=== PATIENT | female | born 1940 | race Caucasian/White ===

== ENCOUNTER 2019-08-05 12:53 | Inpatient (IN) | payer MEDICARE, BC ==
[2019-08-05] MEDS ORDERED: Sodium Chloride 0.9% 1,000 ML IV ONE (13:07)
[2019-08-05] MEDS ORDERED: diphenhydrAMINE 50 MG/ML SDV IVPUSH ONE (13:07)
[2019-08-05] MEDS ORDERED: Famotidine/Normal Saline 20 MG in Premix Bag 1 BAG IV ONE (13:09)
[2019-08-05] MEDS ORDERED: methylPREDNISolone Sodium Succinate 125 MG/2 ML SDV IVPUSH SCH (13:15)
--- NOTE | 2019-08-05 13:17 | EDM.PDOC ---
ED HPI GENERAL MEDICAL PROBLEM - General Stated Complaint: HIVES Time Seen by Provider: 08/05/19 13:11 Source of Information: Reports: Patient, Family History Limitations: Reports: No Limitations - History of Present Illness INITIAL COMMENTS - FREE TEXT/NARRATIVE: c/o fall pt lives alone "in a big house with 4 bedrooms," drives car, goes up and down stairs at home, does not use walker or cane, has not fallen in several years gets up frequently at night, got up to go to the bathroom and slid out of her "high bed" to the floor, unable to get up, lay on floor ~12 hour, pt's granddaughter who is an [employer] found her on the floor dtr at bedside, dtr reports that pt seemed mildly confused when she spoke with her at 9p last night, dtr thinks she is more confused today pt denies pain, denies injury, says she is in good health, does not take any meds was give dexamethasone and Claritin ~2w ago by PCP Dr Bui for hives, still has hives, does with dexamethasone, may have take 3 Claritin last night, still with large welts today pt thinks it is the [employer] coffee because "I drink a lot", did not drink coffee for 2 days last week but pt does not remember if the rash was better then various foods have been eliminated without benefiting pt no pain, no f/c/d, no n/v pt had a "severe" case of West Nile 8y ago, will have trouble walking and thinking when she is physically exhausted or at end of day - Related Data Allergies Allergy/AdvReac Type Severity Reaction Status Date / Time No Known Allergies Allergy Verified 08/05/19 13:29 Home Meds: Home Meds . [No Known Home Meds] 1 ea .XX ASDIRECTED 08/05/19 [History] Past Medical History Neurological History: Reports: Other (See Below) Other Neuro History: West Nile Encephalitis ED ROS GENERAL - Review of Systems Review Of Systems: See Below Constitutional: Reports: Weakness. Denies: Fever HEENT: Reports: No Symptoms Respiratory: Reports: No Symptoms Cardiovascular: Reports: No Symptoms Endocrine: Reports: No Symptoms GI/Abdominal: Reports: No Symptoms : Reports: No Symptoms Musculoskeletal: Reports: No Symptoms Skin: Reports: Urticaria, Other (hives) Neurological: Reports: No Symptoms Psychiatric: Reports: Confusion Hematologic/Lymphatic: Reports: No Symptoms Immunologic: Reports: No Symptoms ED EXAM, GENERAL - Physical Exam Exam: See Below Exam Limited By: No Limitations General Appearance: Alert, WD/WN, No Apparent Distress, Other (alert, conversant) Eye Exam: Bilateral Eye: EOMI, PERRL Ears: Normal External Exam, Normal Canal, Hearing Grossly Normal Nose: Normal Inspection, Normal Mucosa, No Blood Throat/Mouth: Normal Inspection, Normal Lips, Normal Teeth, Normal Gums, Normal Oropharynx, Normal Voice, No Airway Compromise Head: Atraumatic, Normocephalic Neck: Normal Inspection, Supple, Non-Tender, Full Range of Motion. No: Lymphadenopathy (R), Lymphadenopathy (L) Respiratory/Chest: No Respiratory Distress, Lungs Clear, Normal Breath Sounds, No Accessory Muscle Use, Chest Non-Tender Cardiovascular: Regular Rate, Rhythm, No Edema, No Gallop, No JVD, No Murmur, No Rub GI/Abdominal: Soft, Non-Tender, No Distention Extremities: Normal Inspection, Normal Range of Motion, Non-Tender, No Pedal Edema Neurological: Alert, Oriented, CN II-XII Intact, Normal Cognition, No Motor/Sensory Deficits Psychiatric: Normal Affect, Normal Mood Skin Exam: Other (large flat red urticarial welts of 20-30 cm diameter and only a few mm's elevation across abd and chest, extremities spared, face spared) Lymphatic: No Adenopathy Course - Orders/Labs/Meds Orders: Active Orders 24 hr Category Date Time Status Admission Status [Patient Status] [ADT] Routine ADT 08/05/19 15:39 Active EKG Documentation Completion [RC] ASDIRECTED Care 08/05/19 13:10 Active Chest 1V Frontal [CR] Stat Exams 08/05/19 13:16 Taken Head wo Cont [CT] Stat Exams 08/05/19 13:16 Taken CORONAVIRUS COVID-19 PCR PHL Stat Lab 08/05/19 14:12 Ordered CULTURE BLOOD [BC] Urgent Lab 08/05/19 14:22 Received CULTURE BLOOD [BC] Urgent Lab 08/05/19 14:32 Received CULTURE URINE [RM] Stat Lab 08/05/19 14:59 Received cefTRIAXone [Rocephin] Med 08/05/19 15:15 Active 1 gm IVPUSH Q24H methylPREDNISolone Sod Succ [Solu-MEDROL] Med 08/05/19 13:15 Active 125 mg IVPUSH DAILY Blood Culture x2 Reflex Set [OM.PC] Urgent Oth 08/05/19 14:09 Ordered EKG 12 Lead [EK] Routine Ther 08/05/19 13:09 Ordered Medication Orders Ceftriaxone Sodium (Rocephin) 1 gm IVPUSH Q24H EVER Methylprednisolone Sodium Succinate (Solu-Medrol) 125 mg IVPUSH DAILY EVER Last Admin: 08/05/19 13:36 Dose: 125 mg Documented by: MARANDA Labs: Laboratory Tests 08/05/19 08/05/19 08/05/19 Range/Units 13:16 13:16 13:16 WBC 12.4 H (4.5-12.0) X10-3/uL RBC 4.51 (3.23-5.20) x10(6)uL Hgb 13.4 (11.5-15.5) g/dL Hct 40.9 (30.0-51.3) % MCV 90.7 (80-96) fL MCH 29.8 (27.7-33.6) pg MCHC 32.8 (32.2-35.4) g/dL RDW 13.5 (11.5-15.5) % Plt Count 286 (125-369) X10(3)uL MPV 7.0 L (7.4-10.4) fL Add Manual Diff Yes Neutrophils % (Manual) 80 (46-82) % Band Neutrophils % 7 H (0-6) % Lymphocytes % (Manual) 10 L (13-37) % Monocytes % (Manual) 3 L (4-12) % Sodium 134 L (135-145) mmol/L Potassium 3.5 (3.5-5.3) mmol/L Chloride 99 L (100-110) mmol/L Carbon Dioxide 26 (21-32) mmol/L BUN 20 H (7-18) mg/dL Creatinine 1.0 (0.55-1.02) mg/dL Est Cr Clr Drug Dosing TNP Estimated GFR (MDRD) 53 L (>60) BUN/Creatinine Ratio 20.0 (9-20) Glucose 177 H (80-116) mg/dL Lactic Acid (0.4-2.0) mmol/L Calcium 8.3 L (8.6-10.2) mg/dL Magnesium (1.8-2.5) mg/dL Total Bilirubin 2.2 H (0.1-1.3) mg/dL AST 29 H (5-25) IU/L ALT 34 (12-36) U/L Alkaline Phosphatase 63 (56-112) IU/L Creatine Kinase 435 H* (60-160) IU/L Troponin I 15.4 (4.0-60.3) pg/mL C-Reactive Protein 11.2 H* (0.5-0.9) mg/dL Total Protein 6.0 (6.0-8.0) g/dL Albumin 2.8 L (3.2-4.6) g/dL Globulin 3.2 g/dL Albumin/Globulin Ratio 0.9 TSH, Ultra Sensitive (0.36-3.74) IU/mL Urine Color (YELLOW) Urine Appearance (CLEAR) Urine pH (5.0-6.5) Ur Specific [place] (1.010-1.025) Urine Protein (NEGATIVE) mg/dL Urine Glucose (UA) (NORMAL) mg/dL Urine Ketones (NEGATIVE) mg/dL Urine Occult Blood (NEGATIVE) Urine Nitrite (NEGATIVE) Urine Bilirubin (NEGATIVE) Urine Urobilinogen (NEGATIVE) mg/dL Ur Leukocyte Esterase (NEGATIVE) Urine RBC (0-5) Urine WBC (0-5) Ur Squamous Epith Cells (NS,R,O) Urine Bacteria (NS) 08/05/19 08/05/19 08/05/19 Range/Units 13:16 13:16 14:22 WBC (4.5-12.0) X10-3/uL RBC (3.23-5.20) x10(6)uL Hgb (11.5-15.5) g/dL Hct (30.0-51.3) % MCV (80-96) fL MCH (27.7-33.6) pg MCHC (32.2-35.4) g/dL RDW (11.5-15.5) % Plt Count (125-369) X10(3)uL MPV (7.4-10.4) fL Add Manual Diff Neutrophils % (Manual) (46-82) % Band Neutrophils % (0-6) % Lymphocytes % (Manual) (13-37) % Monocytes % (Manual) (4-12) % Sodium (135-145) mmol/L Potassium (3.5-5.3) mmol/L Chloride (100-110) mmol/L Carbon Dioxide (21-32) mmol/L BUN (7-18) mg/dL Creatinine (0.55-1.02) mg/dL Est Cr Clr Drug Dosing Estimated GFR (MDRD) (>60) BUN/Creatinine Ratio (9-20) Glucose (80-116) mg/dL Lactic Acid 1.2 (0.4-2.0) mmol/L Calcium (8.6-10.2) mg/dL Magnesium 1.7 L (1.8-2.5) mg/dL Total Bilirubin (0.1-1.3) mg/dL AST (5-25) IU/L ALT (12-36) U/L Alkaline Phosphatase (56-112) IU/L Creatine Kinase (60-160) IU/L Troponin I (4.0-60.3) pg/mL C-Reactive Protein (0.5-0.9) mg/dL Total Protein (6.0-8.0) g/dL Albumin (3.2-4.6) g/dL Globulin g/dL Albumin/Globulin Ratio TSH, Ultra Sensitive 1.14 (0.36-3.74) IU/mL Urine Color (YELLOW) Urine Appearance (CLEAR) Urine pH (5.0-6.5) Ur Specific [place] (1.010-1.025) Urine Protein (NEGATIVE) mg/dL Urine Glucose (UA) (NORMAL) mg/dL Urine Ketones (NEGATIVE) mg/dL Urine Occult Blood (NEGATIVE) Urine Nitrite (NEGATIVE) Urine Bilirubin (NEGATIVE) Urine Urobilinogen (NEGATIVE) mg/dL Ur Leukocyte Esterase (NEGATIVE) Urine RBC (0-5) Urine WBC (0-5) Ur Squamous Epith Cells (NS,R,O) Urine Bacteria (NS) 08/05/19 Range/Units 14:59 WBC (4.5-12.0) X10-3/uL RBC (3.23-5.20) x10(6)uL Hgb (11.5-15.5) g/dL Hct (30.0-51.3) % MCV (80-96) fL MCH (27.7-33.6) pg MCHC (32.2-35.4) g/dL RDW (11.5-15.5) % Plt Count (125-369) X10(3)uL MPV (7.4-10.4) fL Add Manual Diff Neutrophils % (Manual) (46-82) % Band Neutrophils % (0-6) % Lymphocytes % (Manual) (13-37) % Monocytes % (Manual) (4-12) % Sodium (135-145) mmol/L Potassium (3.5-5.3) mmol/L Chloride (100-110) mmol/L Carbon Dioxide (21-32) mmol/L BUN (7-18) mg/dL Creatinine (0.55-1.02) mg/dL Est Cr Clr Drug Dosing Estimated GFR (MDRD) (>60) BUN/Creatinine Ratio (9-20) Glucose (80-116) mg/dL Lactic Acid (0.4-2.0) mmol/L Calcium (8.6-10.2) mg/dL Magnesium (1.8-2.5) mg/dL Total Bilirubin (0.1-1.3) mg/dL AST (5-25) IU/L ALT (12-36) U/L Alkaline Phosphatase (56-112) IU/L Creatine Kinase (60-160) IU/L Troponin I (4.0-60.3) pg/mL C-Reactive Protein (0.5-0.9) mg/dL Total Protein (6.0-8.0) g/dL Albumin (3.2-4.6) g/dL Globulin g/dL Albumin/Globulin Ratio TSH, Ultra Sensitive (0.36-3.74) IU/mL Urine Color Yellow (YELLOW) Urine Appearance Slightly cloudy (CLEAR) Urine pH 6.5 (5.0-6.5) Ur Specific [place] 1.010 (1.010-1.025) Urine Protein Negative (NEGATIVE) mg/dL Urine Glucose (UA) Normal (NORMAL) mg/dL Urine Ketones Negative (NEGATIVE) mg/dL Urine Occult Blood Negative (NEGATIVE) Urine Nitrite Negative (NEGATIVE) Urine Bilirubin Negative (NEGATIVE) Urine Urobilinogen Normal (NEGATIVE) mg/dL Ur Leukocyte Esterase Moderate H (NEGATIVE) Urine RBC 0-5 (0-5) Urine WBC 10-20 H (0-5) Ur Squamous Epith Cells Few H (NS,R,O) Urine Bacteria Many H (NS) Meds: Medications Generic Name Dose Route Start Last Admin Trade Name Freq PRN Reason Stop Dose Admin Ceftriaxone Sodium 1 gm 08/05/19 15:15 Rocephin IVPUSH Q24H EVER Methylprednisolone Sodium Succinate 125 mg 08/05/19 13:15 08/05/19 13:36 Solu-Medrol IVPUSH 125 mg DAILY EVER Administration Discontinued Medications Generic Name Dose Route Start Last Admin Trade Name Freq PRN Reason Stop Dose Admin Diphenhydramine HCl 25 mg 08/05/19 13:07 08/05/19 13:40 Benadryl IVPUSH 08/05/19 13:08 25 mg ONETIME ONE Administration Sodium Chloride 1,000 mls @ 999 mls/hr 08/05/19 13:07 08/05/19 13:31 Normal Saline IV 08/05/19 14:07 999 mls/hr .BOLUS ONE Administration Famotidine 20 mg/ Premix 50 mls @ 200 mls/hr 08/05/19 13:09 08/05/19 13:37 IV 08/05/19 13:10 200 mls/hr ONETIME ONE Administration - Re-Assessments/Exams Free Text/Narrative Re-Assessment/Exam: 08/05/19 15:56 u/a with UTI per Dr Obrien, CxR with no acute findings, head CT shows central atrophy without acute findings pt is full code d/w Dr Chen who accepted pt in admission, pt and dtr in agreement Departure - Departure Time of Disposition: 15:56 Disposition: Against Medical Advice 07 Condition: Good Clinical Impression: Fall from bed, initial encounter, Unable to stand up, Confusion, Weakness, Hives, Moderate dehydration, Acute prerenal azotemia, Elevated C-reactive protein (CRP), Hypoalbuminemia, Rhabdomyolysis, Hyperglycemia, Leukocytosis, Increased bands, Abnormal EKG, Urinary tract infection, Adrenal suppression, Hypomagnesemia - Discharge Information *PRESCRIPTION DRUG MONITORING PROGRAM REVIEWED*: Not Applicable *COPY OF PRESCRIPTION DRUG MONITORING REPORT IN PATIENT RENZO: Not Applicable Referrals: Rashaad Bui MD [Primary Care Provider] - - My Orders Last 24 Hours: My Active Orders 08/05/19 13:09 EKG 12 Lead [EK] Routine 08/05/19 13:10 EKG Documentation Completion [RC] ASDIRECTED 08/05/19 13:15 methylPREDNISolone Sod Succ [Solu-MEDROL] 125 mg IVPUSH DAILY 08/05/19 13:16 Chest 1V Frontal [CR] Stat Head wo Cont [CT] Stat 08/05/19 14:09 Blood Culture x2 Reflex Set [OM.PC] Urgent 08/05/19 14:12 CORONAVIRUS COVID-19 PCR PHL Stat 08/05/19 14:22 CULTURE BLOOD [BC] Urgent 08/05/19 14:32 CULTURE BLOOD [BC] Urgent 08/05/19 14:59 CULTURE URINE [RM] Stat 08/05/19 15:15 cefTRIAXone [Rocephin] 1 gm IVPUSH Q24H 08/05/19 15:39 Admission Status [Patient Status] [ADT] Routine - Assessment/Plan Last 24 Hours: My Active Orders 08/05/19 13:09 EKG 12 Lead [EK] Routine 08/05/19 13:10 EKG Documentation Completion [RC] ASDIRECTED 08/05/19 13:15 methylPREDNISolone Sod Succ [Solu-MEDROL] 125 mg IVPUSH DAILY 08/05/19 13:16 Chest 1V Frontal [CR] Stat Head wo Cont [CT] Stat 08/05/19 14:09 Blood Culture x2 Reflex Set [OM.PC] Urgent 08/05/19 14:12 CORONAVIRUS COVID-19 PCR PHL Stat 08/05/19 14:22 CULTURE BLOOD [BC] Urgent 08/05/19 14:32 CULTURE BLOOD [BC] Urgent 08/05/19 14:59 CULTURE URINE [RM] Stat 08/05/19 15:15 cefTRIAXone [Rocephin] 1 gm IVPUSH Q24H 08/05/19 15:39 Admission Status [Patient Status] [ADT] Routine
[2019-08-05] MEDS ORDERED: cefTRIAXone 1 GM Vial IVPUSH SCH (15:15)
--- NOTE | 2019-08-05 15:58 | CT ---
INDICATION: Slid out of bed 12 hours ago. Increased confusion. History of West Nile encephalitis [address] HEAD WITHOUT CONTRAST: Spiral 3.75 mm axial sections were obtained through the brain without contrast with sagittal and coronal reconstructions 08/05/19 - no comparisons. Total exam DLP was 1348.07 mGy-cm. The paranasal sinuses appear to be fairly well aerated with no evidence of sinusitis identified. The mastoid air cells were also well aerated. Moderate degenerative changes are noted at the odontoatlantian joint. The orbits appear unremarkable. No definite cranial abnormality was identified. No shift of midline structures was identified. There is some minimal calcification in the internal carotid arteries. The ventricles are prominent, compatible with central atrophy. The sylvian fissures especially the left, are prominent, compatible with temporal atrophy. Otherwise, relatively minimal cortical atrophy for age is suggested. No areas of hemorrhage or hematoma were demonstrated. There do appear to be some minimal white matter changes, compatible with microvascular disease. IMPRESSION: 1. No acute intracranial abnormality. 2. Cerebrovascular disease with mostly central atrophy, but also temporal atrophy. 3. Minimal to mild microvascular disease-type changes in the white matter. Report was called to Dr. Ahuja at 1417 hours. [facility]
[2019-08-05] MEDS ORDERED: Acetaminophen 325 MG Tab PO PRN (16:09)
[2019-08-05] MEDS ORDERED: Ondansetron 4 MG/2 ML SDV IVPUSH PRN (16:09)
[2019-08-05] MEDS ORDERED: cefTRIAXone 1 GM in Sodium Chloride 0.9% 50 ML IV SCH (16:15)
[2019-08-05] MEDS ORDERED: Magnesium Sulfate/Water 50 ML IV ONE (16:30)
--- NOTE | 2019-08-05 16:30 | CR ---
INDICATION: Increased confusion. CHEST, ONE VIEW: An AP upright view of the chest was obtained 08/05/19. Comparison chest x-ray was obtained from the clinic dated 10/03/11. The heart did not appear enlarged. Findings suggesting COPD are noted. A mild dextroconcave scoliosis of the mid thoracic spine is noted with moderate hypertrophic degenerative changes in the mid to lower thoracic spine with hypertrophic lipping. No consolidating pneumonia or effusion was seen. Little interval change is suggested compared with the previous study of 10/03/11. IMPRESSION: No acute process. Report was called to Dr. Ahuja at 1518 hours. [facility]
[2019-08-05] MEDS: D5 1/2 NS w/ 20 mEq/L KCl 1,000 ML IV SCH (17:14)
[2019-08-05] MEDS: Enoxaparin 40 MG/0.4 ML Syringe SUBCUT SCH (17:15)
[2019-08-05] MEDS: methylPREDNISolone Sodium Succinate 125 MG/2 ML SDV IVPUSH SCH (21:38)
[2019-08-05] MEDS ORDERED: Sodium Chloride 0.9% 10 ML Syringe FLUSH PRN (21:39)
[2019-08-05] MEDS ORDERED: Insulin Lispro 100 Unit/ML 3 ML KwikPen SUBCUT ONE ×2 (21:59→22:15)
[2019-08-06] MEDS: methylPREDNISolone Sodium Succinate 125 MG/2 ML SDV IVPUSH SCH (06:11)
[2019-08-06] MEDS ORDERED: Famotidine 20 MG Tab PO SCH (09:00)
[2019-08-06 09:40] LABS: HEMOGLOBIN A1C 7.4 % (<5.7)
[2019-08-06] MEDS: Loratadine 10 MG Tab PO SCH (09:40)
[2019-08-06] MEDS: Ciprofloxacin 250 MG Tab PO SCH ×2 (10:29→20:08)
--- NOTE | 2019-08-06 11:56 | PN ---
DATE SEEN: 08/06/2019 SUBJECTIVE: Viki Gonzalez is a 79-year-old female, presented with a peculiar event. She slid or fell from her bed; unable ambulate or be independent; was there for a period of time, maybe 6 to 12 hours, uncertain; and did have a moment of incontinence. Memory issues appear to be a clouding factor. Walking issues appear to be a clouding factor. Gait appears to be a little bit parkinsonian in nature. Laboratories of significance: Had a mildly elevated C-reactive protein, normal is 0.5, her was 11; CPK was elevated at 435, normal 6 to 160. We will check both of those particular tests today. OBJECTIVE: GENERAL: She otherwise was wellor expressible. Speech was fluent. Conduct was appropriate. Little bit of [place] conversation. NECK: Benign. Thyroid small. CHEST: Clear in all lung hwang. HEART: No ectopy or murmur. ABDOMEN: Benign. NEUROLOGIC: Strength appeared to be symmetric.SKIN; persistant urticarial lesions chest abd and back ASSESSMENT: Recent fall with peculiar consequences. PLAN: PT referral, walker therapy, recheck her CPK and CRP, and results to follow accordingly. /[id number] VIDAL/MIKA WONG
[2019-08-06] MEDS: Enoxaparin 40 MG/0.4 ML Syringe SUBCUT SCH (17:36)
[2019-08-06] MEDS: D5 1/2 NS w/ 20 mEq/L KCl 1,000 ML IV SCH (18:58)
[2019-08-07] MEDS: Ciprofloxacin 250 MG Tab PO SCH (08:22)
[2019-08-07] MEDS: Loratadine 10 MG Tab PO SCH (08:22)
--- NOTE | 2019-08-07 11:06 | DISCH ---
DISCHARGE DATE: 08/07/2019 DISCHARGE DIAGNOSES: 1. Fall with prolonged but resolved generalized weakness. 2. Hyperglycemia, likely new diagnosis of diabetes mellitus. 3. Markedly elevated inflammatory markers including CPK of 435 and 203, C- reactive protein of 11.2 and 17.2. Mildly elevated bilirubin of 2.2. HISTORY: Viki Gonzalez is a 79-year-old female, admitted through [facility]. Circumstances not completely clear of the events that occurred on the morning. Lives alone in a big house, 4 bedrooms, independent by observation. Often up at night to the bathroom, in the care of her 8-pound dog. Sometime in the customer account representative hours, uncertain, and on discussionfour june was up toshe was 12 hourson the floor in bedroom, may have been sitting on the floor by her bed, unable to get up onto the high-top bed. Viki states it was probably customer account representative hours. She thought sun was coming up when she fell. Granddaughter came and attended, took 2 of them to get her down to the main floor, and was seen in the emergency room. Please see present history and physical. DIAGNOSTIC STUDIES: CT head within normal limits. Chest x-ray unremarkable. LABORATORY STUDIES: Of significance: White count 12,400, hemoglobin 13.4, GFR 53, and glucose 177. Hemoglobin A1c 7.4. Mildly elevated bilirubin at 2.2, magnesium 1.7. The patient was admitted for intervention and care. She was given IV fluids, hydration, and observed clinically. It should be noted, initial CPK was 435, fell to 203; CRP 11.2, rechecked on the at 17.7. She was informed of her elevated blood sugar and need for consideration for diabetes management and some dietary precautions. Spoke of the elevated CPK x2 and its impact in terms of muscle inflammation. May have been fall related. No x-rays were taken of bony structures. PHYSICAL EXAMINATION AT DISCHARGE: VITAL SIGNS: 36.6, 153/53, 18, and 98. GENERAL: Appears comfortable. Speech is fluent. NECK: Benign. Thyroid small. CHEST: On auscultation, clear all lung hwang. HEART: No ectopy or murmur. ABDOMEN: Benign. Had been ambulated 6 times yesterday and this morning without conflict. Fall, see diagnosis above. PLAN: We will have an urgent followup with Dr. Bui in middle of this week. We will follow up on blood sugar; A1c; elevated inflammatory markers, i.e., CRP; and elevated bilirubin along with CPK. Complementary care and well being. Discussed close observation. Life Alert is a thought patient declined. She will keep her phone handy. No focal neurological deficits. urine infection present sent home with three days of cipro 250mg bid hives appeared quieter upon discharge APPT WITH DR COSMO BUI THIS UPCOING WEEK Thu WITH DATA ABOVE SHARED [facility] /[id number] VIDAL/MIKA WONG
--- NOTE | 2019-08-08 14:12 | HP ---
ADMISSION DATE: 08/05/2019 REASON FOR VISIT: Fell from bed, unable to get up, very weak. HISTORY OF PRESENT ILLNESS: Ms. Gonzalez is a 79-year-old female from [place], who was brought to [facility] from her home. She lives alone, big house, up in her bedroom, and independent with all of her cares. Walker had been encouraged but had "not fallen in years." Gets up frequently, had to go to the bathroom, lets her dog out. Fell off the high bed to the floor. Unable to get up off the floor. Duration uncertain, 12 hours uncertain. Granddaughter came to her assistance. Granddaughter was unable to get her up by herself, required the assistance of another. She is unable to bear weight. They were able to get her down the steps to emergency room. She was weak in the emergency room. Has a history of unexplained chronic urticaria, has been taking Claritin and dexamethasone. Drinks lots of Espresso coffee, 6 to 8 cups per day. Had severe case of West Nile virus 8 years ago. Was in a very coma-like state for 10 days. She has had some sequelae from that time. HOME MEDICATIONS: None, other than Claritin. ALLERGIES: No medication, environmental, or latex allergies. PAST MEDICAL HISTORY: Significant for previous right breast biopsy for benign disease remotely, remote hemorrhoidectomy, and remote tubal ligation. No other operative procedures, hospitalizations, unusual childhood diseases, major injuries, or fractures. SOCIAL HISTORY: Lives in [place], . Retired nurse. Children are grown and healthy. Never smoked. No chewing. No vaping. No illicit drug use. Alcohol, about 3 drinks per week, wine primarily. FAMILY HISTORY: Negative for early heart disease, diabetes mellitus, or inheritable cancers. REVIEW OF SYSTEMS: Thirteen-point review of systems were reviewed. Pertinent positives and negatives were listed in the history and physical. All other review of systems are therefore given as normal. PHYSICAL EXAMINATION: VITAL SIGNS: On admission, 1.57 meters, 63.5 kg, 37.3 degrees Fahrenheit, 130/45, 16 is the respirations, and 96. GENERAL: Conversant, cooperative, free of conflictual processes. A little uncertain of the circumstances. The patient is orientated to time, place, and person. HEENT: Funduscopic benign. Conjunctivae clear. Bright tympanic membranes. Decreased hearing. Clear nasal discharge. Mouth and oropharynx are clear. Fair dentition. Tongue midline. Good gag reflex. NECK: Benign. Thyroid small. No carotid bruits. CHEST: On auscultation, clear all lung hwang. HEART: On auscultation, no ectopy or murmur. Normal S1, S2 without S3 or significant murmur. ABDOMEN: Benign. Subumbilical surgical scar, remote. No hepatosplenomegaly. GENITOURINARY AND RECTAL: Deferred. EXTREMITIES: Well perfused. NEUROMUSCULAR: Intact. LABORATORY STUDIES: White count 12,400, hemoglobin 13.4, and increased neutrophils. Electrolytes satisfactory. Sodium 134, chloride 99, BUN 20, GFR 53, glucose 177, CPK 435, and CRP 11.2. RADIOGRAPHS: Head CT revealed atrophy only. Chest x-ray: No remarkable findings. ASSESSMENT: Peculiar event, slid/fell from her bed, usually an independent female, who now presents with profound weakness. PLAN: We will treat the urinary tract infection, intervention and care, and PT on board. /[id number] /MIKA
--- NOTE | 2019-08-08 14:12 | DISCH ---
DISCHARGE DATE: 08/07/2019 ADDENDUM: Viki was also found to have a urinary tract infection with mild pyuria. At time of discharge, the culture was pending. She is discharged home on ciprofloxacin 250 mg b.i.d. dose, 3 days consecutive. Follow up with Dr. Krishnamurthy this next week. /[id number] VIDAL/MIKA
--- NOTE | 2019-08-08 23:03 | DISCH ---
DISCHARGE DATE: 08/07/2019 ADDENDUM: It should be noted Viki was given really high doses of IV steroids. ER doctor concerned about adrenal suppression with her use of steroids, though likely of minimal quantity in nature for her urticaria during the stay. Urticaria continued to show improvement during her stay, discharged home on Claritin only. /[id number] VIDAL/MIKA
== END 2019-08-07 12:05 | disposition home or self-care (01) | DRG 690 ==
LOC: FB.ED 12:53 → FB.MS 15:39 → UNDOADMIN 15:39
PROVIDERS: ADMIT Family Medicine; ATTEND Family Medicine
DX: N39.0 Urinary tract infection, site not specified (principal); M62.82 Rhabdomyolysis; L50.9 Urticaria, unspecified; E11.65 Type 2 diabetes mellitus with hyperglycemia; E86.0 Dehydration; R73.9 Hyperglycemia, unspecified; D72.829 Elevated white blood cell count, unspecified; R94.31 Abnormal electrocardiogram [ECG] [EKG]; W06.XXXA Fall from bed, initial encounter; Z20.828 Contact with and (suspected) exposure to other viral communicable diseases; E88.09 Other disorders of plasma-protein metabolism, not elsewhere classified; E83.42 Hypomagnesemia
CPT/HCPCS: 36415; 70450; 71045; 80053; 81001; 82550; 82962; 83036; 83605; 83735; 84443; 84484; 85025; 85651; 86140; 87040; 87086; 87088; 93005; 96361; 96365; 96375; 99285; 99285-25; A9270-GY; J0696; J1200; J1650; J1815; J2930; J3475; J3480; J7030; U0002

== ENCOUNTER 2020-12-25 18:10 | Observation (INO) | payer MEDICARE, BC ==
[2020-12-25] MEDS: Sodium Chloride 0.9% 10 ML Syringe FLUSH PRN ×2 (20:25→22:38)
--- NOTE | 2020-12-25 20:44 | EDM.PDOC ---
ED HPI GENERAL MEDICAL PROBLEM - General Chief Complaint: Lower Extremity Injury/Pain Stated Complaint: POSSIBLE DVT Time Seen by Provider: 12/25/20 18:20 Source of Information: Reports: Patient, Family History Limitations: Reports: No Limitations - History of Present Illness INITIAL COMMENTS - FREE TEXT/NARRATIVE: Patient is an 80 YO WF who presented o the ED because of left lower extremity swelling and redness on the left inner thigh. There is mild pain especially on ambulation. There is no fever, chills, cough/cold symptoms. There is no associated chest pain, dyspnea. No N/V/D. 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 - Related Data Allergies Allergy/AdvReac Type Severity Reaction Status Date / Time No Known Allergies Allergy Verified 12/25/20 18:54 Home Meds: Home Meds Cetirizine [ZyrTEC] 20 mg PO BEDTIME 12/25/20 [History] Cimetidine 800 mg PO DAILY 12/25/20 [History] Famotidine 20 mg PO BID 12/25/20 [History] Montelukast [Singulair] 20 mg PO BEDTIME 12/25/20 [History] dexAMETHasone [Dexamethasone] 1 mg PO DAILY PRN 12/25/20 [History] dexAMETHasone [Dexamethasone] 2 mg PO DAILY PRN 12/25/20 [History] Past Medical History HEENT History: Reports: Hard of Hearing, Impaired Vision Gastrointestinal History: Reports: None Genitourinary History: Reports: None Musculoskeletal History: Reports: Other (See Below) Other Musculoskeletal History: pt had [place] Neurological History: Reports: Other (See Below) 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 - Recreational Drug Use Recreational Drug Use: No Review of Systems - Review of Systems Review Of Systems: See Below Constitutional: Reports: No Symptoms Eyes: Reports: No Symptoms Ears: Reports: No Symptoms Nose: Reports: No Symptoms Mouth/Throat: Reports: No Symptoms Respiratory: Reports: No Symptoms Cardiovascular: Reports: Edema GI/Abdominal: Reports: No Symptoms Genitourinary: Reports: No Symptoms Musculoskeletal: Reports: Leg Pain Skin: Reports: No Symptoms Neurological: Reports: No Symptoms Psychiatric: Reports: No Symptoms ED EXAM, GENERAL - Physical Exam Exam: See Below Exam Limited By: No Limitations General Appearance: Alert, No Apparent Distress Eye Exam: Bilateral Eye: PERRL Ears: Normal External Exam, Normal Canal Nose: Normal Inspection, Normal Mucosa, No Blood Throat/Mouth: Normal Inspection, Normal Lips, Normal Teeth, Normal Gums, Normal Oropharynx, Normal Voice Head: Atraumatic, Normocephalic Neck: Normal Inspection Respiratory/Chest: No Respiratory Distress, Lungs Clear, Normal Breath Sounds, No Accessory Muscle Use, Chest Non-Tender Cardiovascular: Normal Peripheral Pulses, Regular Rate, Rhythm, No Edema, No Gallop, No JVD, No Murmur GI/Abdominal: Normal Bowel Sounds, Soft, Non-Tender, No Organomegaly, No Distention, No Abnormal Bruit Back Exam: Normal Inspection, Full Range of Motion Extremities: Normal Inspection, Normal Range of Motion, Leg Pain, Other (LLE edema) Neurological: Alert, Oriented, CN II-XII Intact, Normal Cognition Psychiatric: Normal Affect, Normal Mood Skin Exam: Warm, Erythema Course - Vital Signs Text/Narrative:: Lab result was reviewed and discussed with patient and her daughter Rocephin 1 gm IV x1 Lovenox [address] Leblanc to order for left lower extremity Doppler US tomorrow Last Recorded V/S: Last Vital Signs Temp 37.2 C 12/25/20 20:47 Pulse 82 12/25/20 20:47 Resp 18 12/25/20 20:47 BP 137/44 L 12/25/20 20:47 Pulse Ox 98 12/25/20 20:50 - Orders/Labs/Meds Orders: Active Orders 24 hr Category Date Time Status Sodium Chloride 0.9% [Saline Flush] Med 12/25/20 19:54 Active 10 ml FLUSH ASDIRECTED PRN Saline Lock Insert [OM.PC] Routine Oth 12/25/20 19:54 Ordered Medication Orders Cetirizine HCl (Cetirizine 10 Mg Tab Own Med) 20 mg PO BEDTIME [facility] Last Admin: 12/25/20 22:42 Dose: 20 mg Documented by: COREY Enoxaparin Sodium (Enoxaparin 60 Mg/0.6 Ml Syringe) 60 mg SUBCUT Q12H [facility] Last Admin: 12/25/20 22:36 Dose: 60 mg Documented by: COREY Ceftriaxone Sodium 1 gm/ (Sodium Chloride) 50 mls @ 200 mls/hr IV Q24H [facility] Last Admin: 12/25/20 22:36 Dose: 200 mls/hr Documented by: COREY Montelukast Sodium (Montelukast 10 Mg Tab Own Med) 20 mg PO BEDTIME [facility] Last Admin: 12/25/20 22:42 Dose: 20 mg Documented by: COREY Ondansetron HCl (Ondansetron 4 Mg/2 Ml Sdv) 4 mg IV Q4H PRN PRN Reason: Nausea/Vomiting Senna/Docusate Sodium (Docusate Sodium/Sennosides 50-8.6 Mg Tab) 1 tab PO BID PRN PRN Reason: Constipation Sodium Chloride (Sodium Chloride 0.9% 10 Ml Syringe) 10 ml FLUSH ASDIRECTED PRN PRN Reason: Keep Vein Open Last Admin: 12/25/20 22:38 Dose: 10 ml Documented by: Admin: 12/25/20 20:25 Dose: 10 ml Documented by: ZEV Labs: Laboratory Tests 12/25/20 12/25/20 12/25/20 Range/Units 18:35 18:35 18:35 WBC 9.5 (3.0-10.3) x10-3/uL RBC 3.84 (3.60-5.20) x10(6)uL Hgb 9.2 L (11.4-15.5) g/dL Hct 29.2 L (34.2-48.2) % MCV 76.2 L (76.7-100.5) fL MCH 23.9 (23.9-33.9) pg MCHC 31.4 L (31.9-34.8) g/dL RDW 15.4 (12.3-16.5) % Plt Count 255 (151-488) x10(3)uL MPV 7.4 (7.1-12.4) fL Neut % (Auto) 61.9 (30.8-76.2) % Lymph % (Auto) 27.4 (18.4-52.1) % Lane % (Auto) 7.6 (4.4-15.7) % Eos % (Auto) 2.9 (0.6-8.1) % Baso % (Auto) 0.2 (0.2-1.5) % Neut # (Auto) 5.8 (1.5-6.3) x10-3/uL Lymph # (Auto) 2.6 (1.0-4.4) x10-3/uL Lane # (Auto) 0.7 (0.3-1.0) x10-3/uL Eos # (Auto) 0.3 (0.0-0.8) x10-3/uL Baso # (Auto) 0.0 (0.0-0.1) x10-3/uL PT (9.0-11.1) sec INR (1.00-1.24) APTT (24.4-33.2) SECONDS D-Dimer, Quantitative 9.13 H (0.0-0.59) mg/LFEU Sodium 140 (135-145) mmol/L Potassium 3.6 (3.5-5.3) mmol/L Chloride 105 D (100-110) mmol/L Carbon Dioxide 25 (21-32) mmol/L BUN 12 (7-18) mg/dL Creatinine 1.0 (0.55-1.02) mg/dL Est Cr Clr Drug Dosing TNP Estimated GFR (MDRD) 53 L (>60) BUN/Creatinine Ratio 12.0 (9-20) Glucose 140 H (80-116) mg/dL Calcium 8.4 L (8.6-10.2) mg/dL Total Bilirubin (0.1-1.3) mg/dL AST (5-25) IU/L ALT (12-36) U/L Alkaline Phosphatase (56-112) IU/L C-Reactive Protein (0.5-0.9) mg/dL Total Protein (6.0-8.0) g/dL Albumin (3.2-4.6) g/dL Globulin g/dL Albumin/Globulin Ratio 12/25/20 12/25/20 12/25/20 Range/Units 18:35 18:35 18:35 WBC (3.0-10.3) x10-3/uL RBC (3.60-5.20) x10(6)uL Hgb (11.4-15.5) g/dL Hct (34.2-48.2) % MCV (76.7-100.5) fL MCH (23.9-33.9) pg MCHC (31.9-34.8) g/dL RDW (12.3-16.5) % Plt Count (151-488) x10(3)uL MPV (7.1-12.4) fL Neut % (Auto) (30.8-76.2) % Lymph % (Auto) (18.4-52.1) % Lane % (Auto) (4.4-15.7) % Eos % (Auto) (0.6-8.1) % Baso % (Auto) (0.2-1.5) % Neut # (Auto) (1.5-6.3) x10-3/uL Lymph # (Auto) (1.0-4.4) x10-3/uL Lane # (Auto) (0.3-1.0) x10-3/uL Eos # (Auto) (0.0-0.8) x10-3/uL Baso # (Auto) (0.0-0.1) x10-3/uL PT 10.5 (9.0-11.1) sec INR 0.97 L (1.00-1.24) APTT 23.8 L (24.4-33.2) SECONDS D-Dimer, Quantitative (0.0-0.59) mg/LFEU Sodium 142 (135-145) mmol/L Potassium 3.6 (3.5-5.3) mmol/L Chloride 106 (100-110) mmol/L Carbon Dioxide 23 (21-32) mmol/L BUN 13 (7-18) mg/dL Creatinine 0.9 (0.55-1.02) mg/dL Est Cr Clr Drug Dosing 41.24 Estimated GFR (MDRD) > 60 (>60) BUN/Creatinine Ratio 14.4 (9-20) Glucose 142 H (80-116) mg/dL Calcium 8.6 (8.6-10.2) mg/dL Total Bilirubin 0.6 (0.1-1.3) mg/dL AST 15 D (5-25) IU/L ALT 20 D (12-36) U/L Alkaline Phosphatase 74 (56-112) IU/L C-Reactive Protein 4.6 H* (0.5-0.9) mg/dL Total Protein 6.3 (6.0-8.0) g/dL Albumin 2.9 L (3.2-4.6) g/dL Globulin 3.4 g/dL Albumin/Globulin Ratio 0.9 Meds: Medications Generic Name Dose Route Start Last Admin Trade Name Freq PRN Reason Stop Dose Admin Cetirizine HCl 20 mg 12/25/20 22:15 12/25/20 22:42 Cetirizine 10 Mg Tab Own Med PO 20 mg BEDTIME [facility] Administration Enoxaparin Sodium 60 mg 12/25/20 21:00 12/25/20 22:36 Enoxaparin 60 Mg/0.6 Ml Syringe SUBCUT 60 mg Q12H [facility] Administration Ceftriaxone Sodium 1 gm/ 50 mls @ 200 mls/hr 12/25/20 21:00 12/25/20 22:36 Sodium Chloride IV 200 mls/hr Q24H [facility] Administration Montelukast Sodium 20 mg 12/25/20 22:15 12/25/20 22:42 Montelukast 10 Mg Tab Own Med PO 20 mg BEDTIME [facility] Administration Ondansetron HCl 4 mg 12/25/20 20:47 Ondansetron 4 Mg/2 Ml Sdv IV Q4H PRN Nausea/Vomiting Senna/Docusate Sodium 1 tab 12/25/20 20:47 Docusate Sodium/Sennosides 50-8.6 Mg Tab PO BID PRN Constipation Sodium Chloride 10 ml 12/25/20 19:54 12/25/20 22:38 Sodium Chloride 0.9% 10 Ml Syringe FLUSH 10 ml ASDIRECTED PRN Administration Keep Vein Open Departure - Departure Time of Disposition: 19:00 Disposition: Refer to Observation Condition: Good Clinical Impression: Cellulitis, Edema of left lower extremity, Anemia - Discharge Information Sepsis Event Note (ED) - Evaluation Sepsis Screening Result: No Definite Risk - Focused Exam Vital Signs: Vital Signs Temp Pulse Resp BP Pulse Ox 12/25/20 19:15 147/66 H 12/25/20 18:10 36.4 C 95 16 181/79 H 98 - My Orders Last 24 Hours: My Active Orders 12/25/20 19:54 Sodium Chloride 0.9% [Saline Flush] 10 ml FLUSH ASDIRECTED PRN Saline Lock Insert [OM.PC] Routine - Assessment/Plan Last 24 Hours: My Active Orders 12/25/20 19:54 Sodium Chloride 0.9% [Saline Flush] 10 ml FLUSH ASDIRECTED PRN Saline Lock Insert [OM.PC] Routine
[2020-12-25] MEDS ORDERED: Ondansetron 4 MG/2 ML SDV IV PRN (20:47)
[2020-12-25] MEDS ORDERED: cefTRIAXone 1 GM in Sodium Chloride 0.9% 50 ML IV SCH (21:00)
[2020-12-25] MEDS: Enoxaparin 60 MG/0.6 ML Syringe SUBCUT SCH (22:36)
[2020-12-26] MEDS ORDERED: Cetirizine 10 MG Tab PO SCH ×2 (08:30→21:00)
[2020-12-26] MEDS ORDERED: DEXAMETHASONE 1 MG PO SCH (09:00)
[2020-12-26] MEDS: Enoxaparin 60 MG/0.6 ML Syringe SUBCUT SCH (10:41)
[2020-12-26] MEDS: DEXAMETHASONE 2 MG PO SCH (10:41)
[2020-12-26] MEDS: Cetirizine 10 MG Tab *PTOM PO SCH (10:42)
--- NOTE | 2020-12-26 13:07 | PCM.HP.2 ---
H&P History of Present Illness - General Date of Service: 12/26/20 Admit Problem/Dx: Admission Diagnosis/Problem Admission Diagnosis/Problem Edema of left lower extremity Source of Information: Patient, Old Records, Provider History Limitations: Reports: No Limitations - History of Present Illness Initial Comments - Free Text/Narative: Viki presented to ER yesterday for increased edema, pain and redness to left inner thigh. She denies any recent travel or surgeries. She has chronic urticaria that she has been worked up at [facility] and her PCP here in [place] and could not find reason for her hives. Only medications she is on is to treat the itching for urticaria. She denies any fevers, chills, cough, shortness of breath, chest pain, nausea, vomiting, diarrhea, constipation. No dysuria, frequency, hematuria. Has urgency. Hives on legs & upper chest. 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 - Related Data Allergies/Adverse Reactions: Allergies Allergy/AdvReac Type Severity Reaction Status Date / Time No Known Allergies Allergy Verified 12/25/20 18:54 Home Medications: Home Meds Cetirizine [ZyrTEC] 20 mg PO BEDTIME 12/25/20 [History] Cimetidine 800 mg PO DAILY PRN 12/25/20 [History] Famotidine 20 mg PO BID PRN 12/25/20 [History] Montelukast [Singulair] 20 mg PO BEDTIME 12/25/20 [History] dexAMETHasone [Dexamethasone] 1 mg PO DAILY PRN 12/25/20 [History] dexAMETHasone [Dexamethasone] 2 mg PO DAILY PRN 12/25/20 [History] Naproxen Sodium [Aleve] 220 mg PO DAILY PRN 12/26/20 [History] Past Medical History HEENT History: Reports: Hard of Hearing, Impaired Vision Gastrointestinal History: Reports: None Genitourinary History: Reports: None Musculoskeletal History: Reports: Other (See Below) Other Musculoskeletal History: pt had west nile Neurological History: Reports: Other (See Below) Other Neuro History: West Nile Encephalitis - Infectious Disease History Infectious Disease History: Reports: Chicken Pox, Other (See Below) Other Infectious Disease History: west nile - Past Surgical History Cardiovascular Surgical History: Reports: None GI Surgical History: Reports: Colonoscopy Female Surgical History: Reports: Tubal Ligation Social & Family History - Tobacco Use Tobacco Use Status *Q: Never Tobacco User Second Hand Smoke Exposure: No - Caffeine Use Caffeine Use: Reports: Coffee Other Caffeine Use: 7-8 espresso's a day. - Recreational Drug Use Recreational Drug Use: No H&P Review of Systems - Review of Systems: Review Of Systems: Comprehensive ROS is negative, except as noted in HPI. Exam - Exam Exam: See Below - Vital Signs Vital Signs: Last Vital Signs Temp 97.5 F 12/26/20 12:00 Pulse 87 12/26/20 12:00 Resp 18 12/26/20 12:00 BP 121/67 12/26/20 12:00 Pulse Ox 95 12/26/20 12:00 Weight: 139 lb 4 oz - Exam General: Alert, Oriented, Cooperative. No: Mild Distress HEENT: PERRLA, Conjunctiva Clear, EOMI, Hearing Intact, Mucosa Moist & [place] Neck: Trachea Midline. No: Lymphadenopathy Lungs: Clear to Auscultation, Normal Respiratory Effort Cardiovascular: Regular Rate, Regular Rhythm GI/Abdominal Exam: Normal Bowel Sounds, Soft, Non-Tender, No Distention (Female) Exam: Deferred Rectal (Female) Exam: Deferred Extremities: Pedal Edema (2+ LLE, no edema RLE), Redness (Urticaria scattered on bilateral legs, chest. ) Peripheral Pulses: 2+: Radial (L), Radial (R), Posterior Tibial (L), Posterior Tibial (R), Dorsalis Pedis (L), Dorsalis Pedis (R) Skin: Rash (Urticaria on BLE, upper chest), Other (Faint erythema of left inner thigh, TTP, no warmth.) - Patient Data Lab Results Last 24 hrs: Laboratory Results - last 24 hr 12/25/20 12/25/20 12/25/20 Range/Units 18:35 18:35 18:35 WBC 9.5 (3.0-10.3) x10-3/uL RBC 3.84 (3.60-5.20) x10(6)uL Hgb 9.2 L (11.4-15.5) g/dL Hct 29.2 L (34.2-48.2) % MCV 76.2 L (76.7-100.5) fL MCH 23.9 (23.9-33.9) pg MCHC 31.4 L (31.9-34.8) g/dL RDW 15.4 (12.3-16.5) % Plt Count 255 (151-488) x10(3)uL MPV 7.4 (7.1-12.4) fL Neut % (Auto) 61.9 (30.8-76.2) % Lymph % (Auto) 27.4 (18.4-52.1) % [place] % (Auto) 7.6 (4.4-15.7) % Eos % (Auto) 2.9 (0.6-8.1) % Baso % (Auto) 0.2 (0.2-1.5) % Neut # (Auto) 5.8 (1.5-6.3) x10-3/uL Lymph # (Auto) 2.6 (1.0-4.4) x10-3/uL [place] # (Auto) 0.7 (0.3-1.0) x10-3/uL Eos # (Auto) 0.3 (0.0-0.8) x10-3/uL Baso # (Auto) 0.0 (0.0-0.1) x10-3/uL PT (9.0-11.1) sec INR (1.00-1.24) APTT (24.4-33.2) SECONDS D-Dimer, Quantitative 9.13 H (0.0-0.59) mg/LFEU Sodium 140 (135-145) mmol/L Potassium 3.6 (3.5-5.3) mmol/L Chloride 105 D (100-110) mmol/L Carbon Dioxide 25 (21-32) mmol/L BUN 12 (7-18) mg/dL Creatinine 1.0 (0.55-1.02) mg/dL Est Cr Clr Drug Dosing TNP Estimated GFR (MDRD) 53 L (>60) BUN/Creatinine Ratio 12.0 (9-20) Glucose 140 H (80-116) mg/dL Lactic Acid (0.4-2.0) mmol/L Calcium 8.4 L (8.6-10.2) mg/dL Total Bilirubin (0.1-1.3) mg/dL AST (5-25) IU/L ALT (12-36) U/L Alkaline Phosphatase (56-112) IU/L C-Reactive Protein (0.5-0.9) mg/dL NT-Pro-B Natriuret Pep (<=450) pg/mL Total Protein (6.0-8.0) g/dL Albumin (3.2-4.6) g/dL Globulin g/dL Albumin/Globulin Ratio TSH, Ultra Sensitive (0.36-3.74) IU/mL Urine Color (YELLOW) Urine Appearance (CLEAR) Urine pH (5.0-6.5) Ur Specific [place] (1.010-1.025) Urine Protein (NEGATIVE) mg/dL Urine Glucose (UA) (NORMAL) mg/dL Urine Ketones (NEGATIVE) mg/dL Urine Occult Blood (NEGATIVE) Urine Nitrite (NEGATIVE) Urine Bilirubin (NEGATIVE) Urine Urobilinogen (NEGATIVE) mg/dL Ur Leukocyte Esterase (NEGATIVE) Urine WBC (0-5) Ur Squamous Epith Cells (NS,R,O) Urine Bacteria (NS) SARS-CoV-2 RNA (SYLWIA) (NEGATIVE) 12/25/20 12/25/20 12/25/20 Range/Units 18:35 18:35 18:35 WBC (3.0-10.3) x10-3/uL RBC (3.60-5.20) x10(6)uL Hgb (11.4-15.5) g/dL Hct (34.2-48.2) % MCV (76.7-100.5) fL MCH (23.9-33.9) pg MCHC (31.9-34.8) g/dL RDW (12.3-16.5) % Plt Count (151-488) x10(3)uL MPV (7.1-12.4) fL Neut % (Auto) (30.8-76.2) % Lymph % (Auto) (18.4-52.1) % [place] % (Auto) (4.4-15.7) % Eos % (Auto) (0.6-8.1) % Baso % (Auto) (0.2-1.5) % Neut # (Auto) (1.5-6.3) x10-3/uL Lymph # (Auto) (1.0-4.4) x10-3/uL Marin # (Auto) (0.3-1.0) x10-3/uL Eos # (Auto) (0.0-0.8) x10-3/uL Baso # (Auto) (0.0-0.1) x10-3/uL PT 10.5 (9.0-11.1) sec INR 0.97 L (1.00-1.24) APTT 23.8 L (24.4-33.2) SECONDS D-Dimer, Quantitative (0.0-0.59) mg/LFEU Sodium 142 (135-145) mmol/L Potassium 3.6 (3.5-5.3) mmol/L Chloride 106 (100-110) mmol/L Carbon Dioxide 23 (21-32) mmol/L BUN 13 (7-18) mg/dL Creatinine 0.9 (0.55-1.02) mg/dL Est Cr Clr Drug Dosing 41.24 Estimated GFR (MDRD) > 60 (>60) BUN/Creatinine Ratio 14.4 (9-20) Glucose 142 H (80-116) mg/dL Lactic Acid (0.4-2.0) mmol/L Calcium 8.6 (8.6-10.2) mg/dL Total Bilirubin 0.6 (0.1-1.3) mg/dL AST 15 D (5-25) IU/L ALT 20 D (12-36) U/L Alkaline Phosphatase 74 (56-112) IU/L C-Reactive Protein 4.6 H* (0.5-0.9) mg/dL NT-Pro-B Natriuret Pep (<=450) pg/mL Total Protein 6.3 (6.0-8.0) g/dL Albumin 2.9 L (3.2-4.6) g/dL Globulin 3.4 g/dL Albumin/Globulin Ratio 0.9 TSH, Ultra Sensitive (0.36-3.74) IU/mL Urine Color (YELLOW) Urine Appearance (CLEAR) Urine pH (5.0-6.5) Ur Specific [place] (1.010-1.025) Urine Protein (NEGATIVE) mg/dL Urine Glucose (UA) (NORMAL) mg/dL Urine Ketones (NEGATIVE) mg/dL Urine Occult Blood (NEGATIVE) Urine Nitrite (NEGATIVE) Urine Bilirubin (NEGATIVE) Urine Urobilinogen (NEGATIVE) mg/dL Ur Leukocyte Esterase (NEGATIVE) Urine WBC (0-5) Ur Squamous Epith Cells (NS,R,O) Urine Bacteria (NS) SARS-CoV-2 RNA (SYLWIA) (NEGATIVE) 12/25/20 12/25/20 12/26/20 Range/Units 20:15 20:15 06:15 WBC 9.7 (3.0-10.3) x10-3/uL RBC 3.82 (3.60-5.20) x10(6)uL Hgb 9.1 L (11.4-15.5) g/dL Hct 29.0 L (34.2-48.2) % MCV 75.9 L (76.7-100.5) fL MCH 23.9 (23.9-33.9) pg MCHC 31.5 L (31.9-34.8) g/dL RDW 15.3 (12.3-16.5) % Plt Count 246 (151-488) x10(3)uL MPV 7.0 L (7.1-12.4) fL Neut % (Auto) 67.9 (30.8-76.2) % Lymph % (Auto) 24.3 (18.4-52.1) % [place] % (Auto) 6.8 (4.4-15.7) % Eos % (Auto) 0.9 (0.6-8.1) % Baso % (Auto) 0.1 L (0.2-1.5) % Neut # (Auto) 6.6 H (1.5-6.3) x10-3/uL Lymph # (Auto) 2.4 (1.0-4.4) x10-3/uL [place] # (Auto) 0.7 (0.3-1.0) x10-3/uL Eos # (Auto) 0.1 (0.0-0.8) x10-3/uL Baso # (Auto) 0.0 (0.0-0.1) x10-3/uL PT (9.0-11.1) sec INR (1.00-1.24) APTT (24.4-33.2) SECONDS D-Dimer, Quantitative (0.0-0.59) mg/LFEU Sodium (135-145) mmol/L Potassium (3.5-5.3) mmol/L Chloride (100-110) mmol/L Carbon Dioxide (21-32) mmol/L BUN (7-18) mg/dL Creatinine (0.55-1.02) mg/dL Est Cr Clr Drug Dosing Estimated GFR (MDRD) (>60) BUN/Creatinine Ratio (9-20) Glucose (80-116) mg/dL Lactic Acid 0.5 (0.4-2.0) mmol/L Calcium (8.6-10.2) mg/dL Total Bilirubin (0.1-1.3) mg/dL AST (5-25) IU/L ALT (12-36) U/L Alkaline Phosphatase (56-112) IU/L C-Reactive Protein (0.5-0.9) mg/dL NT-Pro-B Natriuret Pep (<=450) pg/mL Total Protein (6.0-8.0) g/dL Albumin (3.2-4.6) g/dL Globulin g/dL Albumin/Globulin Ratio TSH, Ultra Sensitive (0.36-3.74) IU/mL Urine Color (YELLOW) Urine Appearance (CLEAR) Urine pH (5.0-6.5) Ur Specific [place] (1.010-1.025) Urine Protein (NEGATIVE) mg/dL Urine Glucose (UA) (NORMAL) mg/dL Urine Ketones (NEGATIVE) mg/dL Urine Occult Blood (NEGATIVE) Urine Nitrite (NEGATIVE) Urine Bilirubin (NEGATIVE) Urine Urobilinogen (NEGATIVE) mg/dL Ur Leukocyte Esterase (NEGATIVE) Urine WBC (0-5) Ur Squamous Epith Cells (NS,R,O) Urine Bacteria (NS) SARS-CoV-2 RNA (SYLWIA) Negative (NEGATIVE) 12/26/20 12/26/20 12/26/20 Range/Units 06:15 06:15 09:16 WBC (3.0-10.3) x10-3/uL RBC (3.60-5.20) x10(6)uL Hgb (11.4-15.5) g/dL Hct (34.2-48.2) % MCV (76.7-100.5) fL MCH (23.9-33.9) pg MCHC (31.9-34.8) g/dL RDW (12.3-16.5) % Plt Count (151-488) x10(3)uL MPV (7.1-12.4) fL Neut % (Auto) (30.8-76.2) % Lymph % (Auto) (18.4-52.1) % [place] % (Auto) (4.4-15.7) % Eos % (Auto) (0.6-8.1) % Baso % (Auto) (0.2-1.5) % Neut # (Auto) (1.5-6.3) x10-3/uL Lymph # (Auto) (1.0-4.4) x10-3/uL [place] # (Auto) (0.3-1.0) x10-3/uL Eos # (Auto) (0.0-0.8) x10-3/uL Baso # (Auto) (0.0-0.1) x10-3/uL PT (9.0-11.1) sec INR (1.00-1.24) APTT (24.4-33.2) SECONDS D-Dimer, Quantitative (0.0-0.59) mg/LFEU Sodium 142 (135-145) mmol/L Potassium 3.8 (3.5-5.3) mmol/L Chloride 108 (100-110) mmol/L Carbon Dioxide 26 (21-32) mmol/L BUN 9 (7-18) mg/dL Creatinine 1.0 (0.55-1.02) mg/dL Est Cr Clr Drug Dosing 37.12 Estimated GFR (MDRD) 53 L (>60) BUN/Creatinine Ratio 9.0 (9-20) Glucose 135 H (80-116) mg/dL Lactic Acid (0.4-2.0) mmol/L Calcium 8.5 L (8.6-10.2) mg/dL Total Bilirubin (0.1-1.3) mg/dL AST (5-25) IU/L ALT (12-36) U/L Alkaline Phosphatase (56-112) IU/L C-Reactive Protein (0.5-0.9) mg/dL NT-Pro-B Natriuret Pep 264 (<=450) pg/mL Total Protein (6.0-8.0) g/dL Albumin (3.2-4.6) g/dL Globulin g/dL Albumin/Globulin Ratio TSH, Ultra Sensitive 1.04 (0.36-3.74) IU/mL Urine Color Yellow (YELLOW) Urine Appearance Clear (CLEAR) Urine pH 6.5 (5.0-6.5) Ur Specific [place] 1.005 L (1.010-1.025) Urine Protein Negative (NEGATIVE) mg/dL Urine Glucose (UA) Normal (NORMAL) mg/dL Urine Ketones Negative (NEGATIVE) mg/dL Urine Occult Blood Negative (NEGATIVE) Urine Nitrite Negative (NEGATIVE) Urine Bilirubin Negative (NEGATIVE) Urine Urobilinogen Normal (NEGATIVE) mg/dL Ur Leukocyte Esterase Negative (NEGATIVE) Urine WBC 0-5 (0-5) Ur Squamous Epith Cells Few H (NS,R,O) Urine Bacteria Few H (NS) SARS-CoV-2 RNA (SYLWIA) (NEGATIVE) Result Diagrams: 12/26/20 06:15 12/26/20 06:15 Sepsis Event Note - Evaluation Sepsis Screening Result: No Definite Risk - Focused Exam Vital Signs: Vital Signs Temp Pulse Resp BP Pulse Ox 12/26/20 12:00 97.5 F 87 18 121/67 95 12/26/20 08:00 99.5 F 88 18 135/63 94 L *Q Meaningful Use (ADM) - VTE *Q VTE Mechanical Contraindications *Q: DT, Suspected - VTE Risk Assess *Q Each Risk Factor Represents 1 Point: Swollen Legs, Current Total Score 1 Point Risk Factors: 1 Each Risk Factor Represents 2 Points: Age 60 - 74 Years Total Score 2 Point Risk Factors: 2 Each Risk Factor Represents 3 Points: History of DVT/PE Total Score 3 Point Risk Factors: 3 Each Risk Factor Represents 5 Points: None Total Score 5 Point Risk Factors: 0 Venous Thromboembolism Risk Factor Score *Q: 6 - Problem List (1) Edema of left lower extremity SNOMED Code(s): 870827662 ICD Code: R60.0 - LOCALIZED EDEMA Status: Acute Current Visit: Yes Problem Details: Ultrasound to rule out DVT. D Dimer 9.13. Lovenox 60 mg q12h. (2) Anemia SNOMED Code(s): 558013511 ICD Code: D64.9 - ANEMIA, UNSPECIFIED Status: Acute Current Visit: Yes Problem Details: Iron studies pending (3) Cellulitis SNOMED Code(s): 925788748 ICD Code: L03.90 - CELLULITIS, UNSPECIFIED Status: Acute Current Visit: Yes Problem Details: Normal WBC, no warmth to area, redness could be secondary to leg edema. Rocephin until ultrasound obtained. Qualifiers: Site of cellulitis: extremity Site of cellulitis of extremity: lower extremity Laterality: left Qualified Code(s): L03.116 - Cellulitis of left lower limb (4) Chronic idiopathic urticaria SNOMED Code(s): 580832739 ICD Code: L50.1 - IDIOPATHIC URTICARIA Status: Chronic Current Visit: Yes (5) History of DVT (deep vein thrombosis) SNOMED Code(s): 820760441 ICD Code: Z86.718 - PERSONAL HISTORY OF OTHER VENOUS THROMBOSIS AND EMBOLISM Status: Chronic Current Visit: Yes Problem List Initiated/Reviewed/Updated: Yes Orders Last 24hrs: Active Orders 24 hr Category Date Time Status Patient Status [ADT] Routine ADT 12/25/20 20:47 Active Oxygen Therapy [RC] PRN Care 12/25/20 20:47 Active Pulse Oximetry [RC] PRN Care 12/25/20 20:50 Active Up With Assistance [RC] ASDIRECTED Care 12/25/20 20:47 Active Vital Signs [RC] Q4H Care 12/25/20 20:47 Active Heart Healthy Diet [DIET] Diet 12/26/20 Breakfast Active Regular Diet [DIET] Diet 12/26/20 Dinner Active VL Duplex Lwr Ext Veins Ltd [US] Routine Exams 12/26/20 04:02 Ordered CULTURE BLOOD [BC] Urgent Lab 12/25/20 20:10 Received CULTURE BLOOD [BC] Urgent Lab 12/25/20 20:15 Received FERRITIN Routine Lab 12/26/20 06:15 Received IRON AND TIBC Routine Lab 12/26/20 06:15 Received Cetirizine [ZyrTEC] Med 12/26/20 09:30 Active 10 mg PO BID Docusate Sodium/Sennosides [Senna Plus] Med 12/25/20 20:47 Active 1 tab PO BID PRN Enoxaparin [Lovenox] Med 12/25/20 21:00 Active 60 mg SUBCUT Q12H Montelukast [Singulair] Med 12/26/20 21:00 Active 10 mg PO BEDTIME Ondansetron [Zofran] Med 12/25/20 20:47 Active 4 mg IV Q4H PRN Sodium Chloride 0.9% [Saline Flush] Med 12/25/20 19:54 Active 10 ml FLUSH ASDIRECTED PRN cefTRIAXone [Rocephin] Med 12/26/20 21:00 Active 1 gm IVPUSH Q24H dexAMETHasone Med 12/26/20 10:00 Active 2 mg PO DAILY Blood Culture x2 Reflex Set [OM.PC] Urgent Oth 12/25/20 20:58 Ordered Saline Lock Insert [OM.PC] Routine Oth 12/25/20 19:54 Ordered Resuscitation Status Routine Resus Stat 12/25/20 20:47 Ordered Medication Orders Ceftriaxone Sodium (Ceftriaxone 1 Gm Vial) 1 gm IVPUSH Q24H EVER Cetirizine HCl (Cetirizine 10 Mg Tab *Ptom) 10 mg PO BID [facility] Last Admin: 12/26/20 10:42 Dose: Not Given Documented by: GUZMAN Dexamethasone (Dexamethasone 2 Mg Tab *Ptom) 2 mg PO DAILY [facility] Last Admin: 12/26/20 10:41 Dose: 2 mg Documented by: [id number] Enoxaparin Sodium (Enoxaparin 60 Mg/0.6 Ml Syringe) 60 mg SUBCUT Q12H [facility] Last Admin: 12/26/20 10:41 Dose: 60 mg Documented by: [email or web address] Admin: 12/25/20 22:36 Dose: 60 mg Documented by: COREY Montelukast Sodium (Montelukast 10 Mg Tab *Ptom) 10 mg PO BEDTIME [facility] Ondansetron HCl (Ondansetron 4 Mg/2 Ml Sdv) 4 mg IV Q4H PRN PRN Reason: Nausea/Vomiting Senna/Docusate Sodium (Docusate Sodium/Sennosides 50-8.6 Mg Tab) 1 tab PO BID PRN PRN Reason: Constipation Sodium Chloride (Sodium Chloride 0.9% 10 Ml Syringe) 10 ml FLUSH ASDIRECTED PRN PRN Reason: Keep Vein Open Last Admin: 12/25/20 22:38 Dose: 10 ml Documented by: Admin: 12/25/20 20:25 Dose: 10 ml Documented by: MOELWEN Assessment/Plan Comment:: 1. Admit for observation for acute leg swelling/edema, R/O DVT. Questionable cellulitis. 2. Left leg edema/pain: Lovenox 60 mg SQ q12h, Doppler ultrasound today. 3. Redness/chronic urticaria: Rocephin 1 g IV q12h. Redness is faint on her left upper thigh, no warmth. Has multiple urticaria on same leg so hard to determine if cellulitis or hives. Continue home urticarial medications. Repeat labs tomorrow. 4. Diet: Regular. 5. Activity: up ad audrey. 6. DVT prophylaxis: NO TEDS or SCDs. Lovenox 60 mg sq q12h. 7. CODE STATUS: FULL. 8. Disposition: doppler ultrasound, if DVT present will start NOAC. Discharge 24-48 hours. - Mortality Measure Prognosis:: Good
[2020-12-26] MEDS: Apixaban 5 MG Tab PO SCH (20:04)
[2020-12-26] MEDS ORDERED: Montelukast 10 MG Tab *PTOM PO SCH (21:00)
[2020-12-26] MEDS ORDERED: cefTRIAXone 1 GM Vial IVPUSH SCH (21:00)
[2020-12-27 07:15] LABS: IRON BIND.CAP.(TIBC) 324 ug/dL (250-450); IRON SATURATION 8 % (15-55); IRON, SERUM 26 ug/dL (27-139); UIBC 298 ug/dL (118-369)
--- NOTE | 2020-12-27 07:26 | US ---
DUPLEX ULTRASOUND LEFT LOWER EXTREMITY VEINS INDICATION: Left leg swelling, pain, history of previous DVT, question new DVT. FINDINGS: Utilizing 2D realtime, duplex Doppler, spectral analysis and color flow imaging, examination of the left lower extremity veins was obtained, including common femoral vein, proximal greater saphenous vein and more distal greater saphenous vein, proximal deep femoral vein, proximal, mid and distal femoral vein, popliteal vein, posterior tibial vein and peroneal vein. Deep venous thrombosis is present in the left thigh and calf, most extensively in the thigh with some flow at the popliteal vein and in portions of the posterior tibial vein. Peroneal vein is occluded over a significant portion of its course. In comparison with previous study from 11/17/11, there is more extensive deep venous thrombosis which is extending into the calf. IMPRESSION: Extensive deep venous thrombosis left lower extremity. Report was called to Dr. Rebolledo at 1356 hours. [facility]
[2020-12-27] MEDS: DEXAMETHASONE 2 MG PO SCH (08:12)
[2020-12-27] MEDS: Apixaban 5 MG Tab PO SCH (08:12)
[2020-12-27] MEDS: Cetirizine 10 MG Tab *PTOM PO SCH ×2 (08:24)
[2020-12-27] MEDS ORDERED: Iron Polysaccharides Complex 150 MG Cap PO SCH (11:45)
[2020-12-27] MEDS ORDERED: Ascorbic Acid 500 MG Tab PO SCH (12:00)
--- NOTE | 2020-12-27 15:52 | PCM.DCSUM1 ---
Discharge Summary - Hospital Course HPI Initial Comments: Viki presented to ER yesterday for increased edema, pain and redness to left inner thigh. She denies any recent travel or surgeries. She has chronic urticaria that she has been worked up at [facility] and her PCP here in [place] and could not find reason for her hives. Only medications she is on is to treat the itching for urticaria. She denies any fevers, chills, cough, shortness of breath, chest pain, nausea, vomiting, diarrhea, constipation. No d ysuria, frequency, hematuria. Has urgency. Hives on legs & upper chest. She has history of [place], DVT in left leg >5 yrs ago. 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 Diagnosis: Stroke: No - Discharge Data Discharge Date: 12/27/20 Discharge Disposition: Home, W Home Health Agency 06 Condition: Good - Referral to Home Health Date of Face to Face Encounter: 12/27/20 Reason for Homebound Status: Limited mobility Primary Care Physician: Donato Naranjo MD Skilled Need: long term for assessment/education of Eliquis, PT/OT gait/balance. - Discharge Diagnosis/Problem(s) (1) Left leg DVT SNOMED Code(s): 525362459 ICD Code: I82.402 - ACUTE EMBOLISM AND THOMBOS UNSP DEEP VEINS OF L LOW EXTREM Status: Acute Problem Details: Left groin to ankle Qualifiers: Chronicity: acute (2) Edema of left lower extremity SNOMED Code(s): 577468506 ICD Code: R60.0 - LOCALIZED EDEMA Status: Acute Problem Details: Extensive DVT. D Dimer 9.13. Eliquis 10 mg bid x 7 days then 5 mg bid will need for lifetime since this is recurrence. (3) Anemia SNOMED Code(s): 266415095 ICD Code: D64.9 - ANEMIA, UNSPECIFIED Status: Acute Problem Details: Iron low, start Iron 150 mg daily with Vitamin C 500 mg daily Qualifiers: Anemia type: iron deficiency (4) Cellulitis SNOMED Code(s): 849921218 ICD Code: L03.90 - CELLULITIS, UNSPECIFIED Status: Ruled-out Problem Details: Normal WBC, no warmth to area, redness resolved after dexamethasone. Discontinued Rocephin. Qualifiers: Site of cellulitis: extremity Site of cellulitis of extremity: lower extremity Laterality: left Qualified Code(s): L03.116 - Cellulitis of left lower limb (5) Chronic idiopathic urticaria SNOMED Code(s): 289995747 ICD Code: L50.1 - IDIOPATHIC URTICARIA Status: Chronic (6) History of DVT (deep vein thrombosis) SNOMED Code(s): 514882675 ICD Code: Z86.718 - PERSONAL HISTORY OF OTHER VENOUS THROMBOSIS AND EMBOLISM Status: Chronic - Patient Summary/Data Consults: Consultations 12/26/20 15:58 OT Evaluation and Treatment [CONS] Routine Please Evaluate and Treat. OT Reason for Consult: ADL's This query below is only for informational purposes and is not editable. Admission Diagnosis/Problem: Edema of left lower extremity Hospital Course: She had WBC of 9.5 and 9.7, Hgb 9.2 & 9.1 respectively. D Dimer was 9.13 in ER, doppler ultrasound showed extensive DVT in left lower leg which was done 12/26. CRP 4.6. BNP 264. TSH 1.04. UA negative. Covid negative. Her chemistry was within normal limits during stay. Her iron studies came back: iron low at 26, Iron saturation low at 8, normal TIBC 324, Ferritin 22, unsaturated IBC 298. In ER she was started on Lovenox 60 mg SQ q12h until Doppler results were back. She was started on Eliquis 10 mg bid x 7 days then reduce dose to 5 mg bid indefinitely since this is her second DVT in same leg as previous. She received 2 doses of Eliquis during stay. Her iron studies came back 12/27, started on Iron 150 mg daily with Vitamin C 500 mg daily. Pt stated she takes 3000 mg of Vitamin C at home. She also had her chronic urticaria when she was seen morning of 12/26, Dexamethasone 2 mg given, urticaria resolved. OT assessed as she was having falls at home, undocumented per family. OT saw her today, recommended HH with therapy services. Follow up with Dr Naranjo next week. 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 - Discharge Plan *PRESCRIPTION DRUG MONITORING PROGRAM REVIEWED*: Not Applicable *COPY OF PRESCRIPTION DRUG MONITORING REPORT IN PATIENT RENZO: Not Applicable Prescriptions/Med Rec: Apixaban [Eliquis] 5 mg PO BID #72 tablet Iron Polysaccharides Complex [Ferrex 150] 150 mg PO DAILY #30 cap Ascorbic Acid [Vitamin C] 500 mg PO DAILY #30 tablet Home Medications: Home Meds Cetirizine [ZyrTEC] 20 mg PO BEDTIME 12/25/20 [History] Cimetidine 800 mg PO DAILY PRN 12/25/20 [History] Famotidine 20 mg PO BID PRN 12/25/20 [History] Montelukast [Singulair] 20 mg PO BEDTIME 12/25/20 [History] dexAMETHasone [Dexamethasone] 1 mg PO DAILY PRN 12/25/20 [History] dexAMETHasone [Dexamethasone] 2 mg PO DAILY PRN 12/25/20 [History] Naproxen Sodium [Aleve] 220 mg PO DAILY PRN 12/26/20 [History] Apixaban [Eliquis] 5 mg PO BID #72 tablet 12/27/20 [Rx] Ascorbic Acid [Vitamin C] 500 mg PO DAILY #30 tablet 12/27/20 [Rx] Iron Polysaccharides Complex [Ferrex 150] 150 mg PO DAILY #30 cap 12/27/20 [Rx] Oxygen Therapy Mode: Room Air Patient Handouts: Ascorbic Acid, Vitamin C tablet, Iron tablets, capsules, extended-release tablets, Apixaban oral tablets Forms: ED Department Discharge Referrals: Donato Naranjo MD [Physician] - - Discharge Summary/Plan Comment DC Time >30 min.: No Total # of Minutes for Discharge Time: 16 min - General Info Date of Service: 12/27/20 Subjective Update: Viki feels much better. Hives resolved with Dexamethasone. No further itching. Family was concerned bout falling at home. OT saw patient this morning for assessment, recommended HH with therapy. No fevers, chills, pain improved. - Patient Data Vitals - Most Recent: Last Vital Signs Temp 97.9 F 12/27/20 07:45 Pulse 67 12/27/20 07:45 Resp 22 H 12/27/20 07:45 BP 133/68 12/27/20 07:45 Pulse Ox 98 12/27/20 07:45 Weight - Most Recent: 139 lb 4 oz Lab Results - Last 24 hrs: Laboratory Results - last 24 hr 12/26/20 12/26/20 Range/Units 06:15 06:15 Iron 26 L (27-139) ug/dL TIBC 324 (250-450) ug/dL Iron Saturation 8 L (15-55) % Unsaturated IBC 298 (118-369) ug/dL Ferritin 22 (15-150) ng/mL TRIPP Results - Last 24 hrs: Microbiology 12/25/20 20:15 Aerobic Blood Culture - Preliminary Blood - Venous - Lab Draw NO GROWTH AFTER 1 DAY Anaerobic Blood Culture - Preliminary NO GROWTH AFTER 1 DAY 12/25/20 20:10 Aerobic Blood Culture - Preliminary Blood - Venous NO GROWTH AFTER 1 DAY Anaerobic Blood Culture - Preliminary NO GROWTH AFTER 1 DAY Med Orders - Current: Current Medications Discontinued Medications Apixaban (Apixaban 5 Mg Tab) 10 mg PO BID FOR[facility]LY [facility] Last Admin: 12/27/20 08:12 Dose: 10 mg Documented by: Ascorbic Acid (Ascorbic Acid 500 Mg Tab) 500 mg PO DAILY [facility], [facility] Last Admin: 12/27/20 12:22 Dose: 500 mg Documented by: Ceftriaxone Sodium (Ceftriaxone 1 Gm Vial) 1 gm IVPUSH Q24H [facility], [facility]1983 Cetirizine HCl (Cetirizine 10 Mg Tab Own Med) 20 mg PO BEDTIME [facility] Last Admin: 12/25/20 22:42 Dose: 20 mg Documented by: Cetirizine HCl (Cetirizine 10 Mg Tab) 10 mg PO BEDTIME [facility], [facility] Last Admin: 12/26/20 11:03 Dose: Not Given Documented by: Cetirizine HCl (Cetirizine 10 Mg Tab *Ptom) 10 mg PO BID [facility] Last Admin: 12/27/20 08:24 Dose: 10 mg Documented by: Cetirizine HCl (Cetirizine 10 Mg Tab) 10 mg PO BID [facility] Last Admin: 12/26/20 20:04 Dose: 10 mg Documented by: Dexamethasone (Dexamethasone 2 Mg Tab *Ptom) 2 mg PO DAILY [facility] Last Admin: 12/27/20 08:12 Dose: 2 mg Documented by: Enoxaparin Sodium (Enoxaparin 60 Mg/0.6 Ml Syringe) 60 mg SUBCUT Q12H [facility] Last Admin: 12/26/20 10:41 Dose: 60 mg Documented by: Ceftriaxone Sodium 1 gm/ (Sodium Chloride) 50 mls @ 200 mls/hr IV Q24H [facility] Last Admin: 12/25/20 22:36 Dose: 200 mls/hr Documented by: Montelukast Sodium (Montelukast 10 Mg Tab Own Med) 20 mg PO BEDTIME [facility] Last Admin: 12/25/20 22:42 Dose: 20 mg Documented by: Montelukast Sodium (Montelukast 10 Mg Tab *Ptom) 10 mg PO BEDTIME [facility] Last Admin: 12/26/20 20:04 Dose: 10 mg Documented by: Ondansetron HCl (Ondansetron 4 Mg/2 Ml Sdv) 4 mg IV Q4H PRN PRN Reason: Nausea/Vomiting Polysaccharide Iron Complex (Iron Polysaccharides Complex 150 Mg Cap) 150 mg PO DAILY [facility] Last Admin: 12/27/20 12:22 Dose: 150 mg Documented by: Senna/Docusate Sodium (Docusate Sodium/Sennosides 50-8.6 Mg Tab) 1 tab PO BID PRN PRN Reason: Constipation Sodium Chloride (Sodium Chloride 0.9% 10 Ml Syringe) 10 ml FLUSH ASDIRECTED PRN PRN Reason: Keep Vein Open Last Admin: 12/25/20 22:38 Dose: 10 ml Documented by: - Exam General: Reports: Alert, Oriented, Cooperative, No Acute Distress Lungs: Reports: Clear to Auscultation, Normal Respiratory Effort Cardiovascular: Reports: Regular Rate, Regular Rhythm GI/Abdominal Exam: Normal Bowel Sounds, Soft, Non-Tender, No Distention Extremities: No Pedal Edema (RLE), Pedal Edema (LLE 2+) Skin: Denies: Rash Wound/Incisions: Denies: Erythema *Q Meaningful Use (DIS) - VTE *Q VTE Mechanical Contraindications *Q: DVT, Confirmed
== END 2020-12-27 12:40 | disposition home health service (06) ==
LOC: FB.ED 18:10 → FB.MS 20:15
PROVIDERS: ADMIT Emergency Medicine; ATTEND Family Medicine
DX: R60.0 Localized edema (principal); L50.1 Idiopathic urticaria; D64.9 Anemia, unspecified; L03.116 Cellulitis of left lower limb; Z20.822 Contact with and (suspected) exposure to COVID-19; Z79.899 Other long term (current) drug therapy; Z98.890 Other specified postprocedural states; Z86.718 Personal history of other venous thrombosis and embolism
CPT/HCPCS: 36415; 80048; 80053; 81001; 82728; 83540; 83550; 83605; 83880; 84443; 85025; 85379; 85610; 85730; 86140; 87040; 93971-LT; 96372; 96374; 97165-GO; 99284; A9270-GY; G0378; J0696; J1650; J8540; U0002

== ENCOUNTER 2022-10-24 20:47 | Emergency (ER) | payer MEDICARE, BC ==
[2022-10-24] MEDS ORDERED: Sulfamethoxazole/Trimethoprim 800-160 MG Tab PO ONE (20:48)
[2022-10-24 21:27] LABS: BASOPHILS ABSOLUTE AUTO 0.1 x10-3/uL (0.0-0.1); BASOPHILS PERCENT AUTO 0.7 % (0.2-1.5); EOSINOPHILS ABSOLUTE AUTO 0.3 x10-3/uL (0.0-0.8); EOSINOPHILS PERCENT AUTO 3.5 % (0.6-8.1); HEMATOCRIT 41.6 % (34.2-48.2); HEMOGLOBIN 14.1 g/dL (11.4-15.5); LYMPHOCYTES ABSOLUTE AUTO 2.6 x10-3/uL (1.0-4.4); LYMPHOCYTES PERCENT AUTO 35.5 % (18.4-52.1); MEAN CORPUSCULAR HEMOGLOBIN 29.9 pg (23.9-33.9); MEAN CORPUSCULAR HGB CONC 33.9 g/dL (31.9-34.8); MEAN CORPUSCULAR VOLUME 88.2 fL (76.7-100.5); MEAN PLATELET VOLUME 7.2 fL (7.1-12.4); MONOCYTES ABSOLUTE AUTO 0.7 x10-3/uL (0.3-1.0); MONOCYTES PERCENT AUTO 9.1 % (4.4-15.7); NEUTROPHILS ABSOLUTE AUTO 3.7 x10-3/uL (1.5-6.3); NEUTROPHILS PERCENT AUTO 51.2 % (30.8-76.2); PLATELET COUNT,PLT 306 x10(3)uL (151-488); RED BLOOD CELL COUNT 4.72 x10(6)uL (3.60-5.20); WHITE BLOOD CELL COUNT,WBC 7.3 x10-3/uL (3.0-10.3)
[2022-10-24 21:34] LABS: ALANINE AMINOTRANSFERASE,ALT 22 U/L (12-36); ALBUMIN 3.6 g/dL (3.2-4.6); ALKALINE PHOSPHATASE 72 IU/L (56-112); ASPARTATE AMNIOTRANSFERASE,AST 17 IU/L (5-25); BILIRUBIN TOTAL 0.4 mg/dL (0.1-1.3); BLOOD UREA NITROGEN,BUN 8 mg/dL (7-18); BUN/CREATININE RATIO 8.9 (9-20); CALCIUM 9.1 mg/dL (8.6-10.2); CARBON DIOXIDE,CO2 25 mmol/L (21-32); CHLORIDE,CL 107 mmol/L (100-110); CREATININE 0.9 mg/dL (0.55-1.02); EST CRCL DRUG DOSING (CG) 39.87 mL/min; ESTIMATED GFR 64 mL/min (>60); GLUCOSE RANDOM 108 mg/dL (80-116); POTASSIUM,K 3.5 mmol/L (3.5-5.3); PROTEIN TOTAL,TP 7.1 g/dL (6.0-8.0); SODIUM,NA 144 mmol/L (135-145)
[2022-10-24 21:50] LABS: BILIRUBIN,URINE NEGATIVE (NEGATIVE); GLUCOSE,URINE NORMAL (NORMAL); KETONES,URINE NEGATIVE (NEGATIVE); LEUKOCYTE ESTERASE,URINE SMALL (NEGATIVE); NITRITE,URINE NEGATIVE (NEGATIVE); OCCULT BLOOD,URINE NEGATIVE (NEGATIVE); PROTEIN,URINE NEGATIVE (NEGATIVE); UROBILINOGEN,URINE NORMAL (NEGATIVE)
[2022-10-24 21:54] LABS: APPEARANCE,URINE CLEAR (CLEAR); BACTERIA,URINE FEW (NS); COLOR,URINE YELLOW (YELLOW); RBC,URINE 0-5 (0-5); SQUAMOUS EPITHELIAL CELLS,UR FEW (NS,R,O); WBC,URINE 0-5 (0-5)
== END 2022-10-24 23:26 | disposition home or self-care (01) ==
LOC: FB.ED 20:47
DX: S09.90XA Unspecified injury of head, initial encounter (principal); N39.0 Urinary tract infection, site not specified; Z79.899 Other long term (current) drug therapy; Z79.01 Long term (current) use of anticoagulants; W18.39XA Other fall on same level, initial encounter
CPT/HCPCS: 36415; 70450; 80053; 80307; 81001; 84484; 85025; 87086; 93005; 99284; A9270

== ENCOUNTER 2023-11-30 09:31 | Observation (INO) | payer MEDICARE, BC ==
[2023-11-30 11:14] LABS: BLOOD UREA NITROGEN,BUN 8 mg/dL (7-18); CALCIUM 8.9 mg/dL (8.6-10.2); CARBON DIOXIDE,CO2 27 mmol/L (21-32); CHLORIDE,CL 104 mmol/L (100-110); ESTIMATED GFR 56 mL/min (>60); GLUCOSE RANDOM 142 mg/dL (80-116); POTASSIUM,K 3.8 mmol/L (3.5-5.3); SODIUM,NA 140 mmol/L (135-145)
[2023-11-30 11:15] LABS: BASOPHILS PERCENT AUTO 0.3 % (0.2-1.5); EOSINOPHILS ABSOLUTE AUTO 0.1 x10-3/uL (0.0-0.8); EOSINOPHILS PERCENT AUTO 0.7 % (0.6-8.1); HEMOGLOBIN 14.8 g/dL (11.4-15.5); LYMPHOCYTES ABSOLUTE AUTO 1.7 x10-3/uL (1.0-4.4); LYMPHOCYTES PERCENT AUTO 15.4 % (18.4-52.1); MEAN CORPUSCULAR HEMOGLOBIN 29.7 pg (23.9-33.9); MEAN CORPUSCULAR HGB CONC 33.6 g/dL (31.9-34.8); MEAN CORPUSCULAR VOLUME 88.5 fL (76.7-100.5); MEAN PLATELET VOLUME 7.6 fL (7.1-12.4); MONOCYTES ABSOLUTE AUTO 0.9 x10-3/uL (0.3-1.0); MONOCYTES PERCENT AUTO 7.9 % (4.4-15.7); NEUTROPHILS ABSOLUTE AUTO 8.3 x10-3/uL (1.5-6.3); NEUTROPHILS PERCENT AUTO 75.7 % (30.8-76.2); PLATELET COUNT,PLT 243 x10(3)uL (151-488); RED BLOOD CELL COUNT 4.97 x10(6)uL (3.60-5.20); RED CELL DISTRIBUTION WIDTH 14.4 % (12.3-16.5); WHITE BLOOD CELL COUNT,WBC 10.9 x10-3/uL (3.0-10.3)
[2023-11-30 11:19] LABS: ALANINE AMINOTRANSFERASE,ALT 22 U/L (12-36); ALBUMIN 3.6 g/dL (3.2-4.6); ALKALINE PHOSPHATASE 83 IU/L (56-112); ASPARTATE AMNIOTRANSFERASE,AST 20 IU/L (5-25); BILIRUBIN TOTAL 1.3 mg/dL (0.1-1.3); PROTEIN TOTAL,TP 7.2 g/dL (6.0-8.0)
[2023-11-30 11:24] LABS: LACTIC ACID 1.2 mmol/L (0.4-2.0)
[2023-11-30] MEDS: Acetaminophen/HYDROcodone 325-5 MG Tab PO PRN (16:53)
[2023-11-30] MEDS ORDERED: QUEtiapine 25 MG Tab PO PRN (16:57)
[2023-11-30] MEDS ORDERED: Ondansetron 4 MG Tab.DIS PO PRN (19:17)
[2023-11-30] MEDS: Sulfamethoxazole/Trimethoprim 800-160 MG Tab PO SCH (20:14)
[2023-11-30] MEDS: Acetaminophen 325 MG Tab PO PRN (20:15)
[2023-11-30] MEDS: Trospium 20 MG Tab PO SCH (20:15)
[2023-11-30] MEDS: Heparin Sodium 5,000 Units/ML Vial SUBCUT SCH (21:00)
[2023-12-01 06:41] LABS: BASOPHILS PERCENT AUTO 0.4 % (0.2-1.5); EOSINOPHILS ABSOLUTE AUTO 0.3 x10-3/uL (0.0-0.8); EOSINOPHILS PERCENT AUTO 3.9 % (0.6-8.1); HEMATOCRIT 41.2 % (34.2-48.2); HEMOGLOBIN 13.9 g/dL (11.4-15.5); LYMPHOCYTES ABSOLUTE AUTO 2.3 x10-3/uL (1.0-4.4); MEAN CORPUSCULAR HEMOGLOBIN 29.6 pg (23.9-33.9); MEAN CORPUSCULAR HGB CONC 33.8 g/dL (31.9-34.8); MEAN CORPUSCULAR VOLUME 87.8 fL (76.7-100.5); MEAN PLATELET VOLUME 7.5 fL (7.1-12.4); MONOCYTES ABSOLUTE AUTO 0.7 x10-3/uL (0.3-1.0); MONOCYTES PERCENT AUTO 9.2 % (4.4-15.7); NEUTROPHILS PERCENT AUTO 54.5 % (30.8-76.2); PLATELET COUNT,PLT 221 x10(3)uL (151-488); RED BLOOD CELL COUNT 4.69 x10(6)uL (3.60-5.20); RED CELL DISTRIBUTION WIDTH 14.2 % (12.3-16.5); WHITE BLOOD CELL COUNT,WBC 7.3 x10-3/uL (3.0-10.3)
[2023-12-01 06:50] LABS: BLOOD UREA NITROGEN,BUN 10 mg/dL (7-18); BUN/CREATININE RATIO 9.1 (9-20); CALCIUM 8.7 mg/dL (8.6-10.2); CARBON DIOXIDE,CO2 24 mmol/L (21-32); CHLORIDE,CL 108 mmol/L (100-110); CREATININE 1.1 mg/dL (0.55-1.02); EST CRCL DRUG DOSING (CG) 32.06 mL/min; ESTIMATED GFR 50 mL/min (>60); GLUCOSE RANDOM 124 mg/dL (80-116); POTASSIUM,K 3.9 mmol/L (3.5-5.3); SODIUM,NA 142 mmol/L (135-145)
== END 2023-12-01 16:36 | disposition home or self-care (01) ==
LOC: FB.ED 09:31 → FB.MS 12:38
PROVIDERS: ADMIT Internal Medicine; ATTEND Internal Medicine
DX: S52.542A Smith's fracture of left radius, initial encounter for closed fracture (principal); S52.552A Other extraarticular fracture of lower end of left radius, initial encounter for closed fracture; W18.30XA Fall on same level, unspecified, initial encounter
CPT/HCPCS: 29125; 36415; 70450; 73110-LT; 80048; 80053; 83605; 84484; 85025; 93005; 93010; 94150; 96372; 97161-GP; 99222; 99238; 99285; 99285-25; A9270-GY; G0378; J1644

== ENCOUNTER 2024-01-05 08:04 | Emergency (ER) | payer MEDICARE, BC | END 2024-01-05 10:15 | disposition home or self-care (01) | LOC: FB.ED 08:04 | DX: S06.0X1A Concussion with loss of consciousness of 30 minutes or less, initial encounter (principal); G91.0 Communicating hydrocephalus; Z79.899 Other long term (current) drug therapy; W01.198A Fall on same level from slipping, tripping and stumbling with subsequent striking against other object, initial encounter; Y92.019 Unspecified place in single-family (private) house as the place of occurrence of the external cause | CPT/HCPCS: 70450; 72192; 99284 ==